=== PATIENT | female | born 1955 | race Caucasian/White ===

== ENCOUNTER 2021-10-27 22:52 | Emergency (ER) | payer BC ==
[~2021-10-27] VITALS: Ht 165.1 cm; Wt 90.9 kg
[2021-10-27 22:53] VITALS: BP 175/92
[2021-10-28] MEDS ORDERED: NORCO, ANEXSIA 5/325MG TABLET (HYDROcodone/ACETAMINOPHEN) PO ONE (01:15)
[2021-10-28] MEDS ORDERED: HYDR-3713 PO (01:48)
[2021-10-28] MEDS ORDERED: NORCO 5/325MG TABLET (HOME DOSE PACK) PO ONE (01:55)
== END 2021-10-28 01:58 | disposition home or self-care (01) ==
LOC: M ED 22:52
DX: S62.320A Displaced fracture of shaft of second metacarpal bone, right hand, initial encounter for closed fracture (principal); W01.0XXA Fall on same level from slipping, tripping and stumbling without subsequent striking against object, initial encounter; Y92.018 Other place in single-family (private) house as the place of occurrence of the external cause; Z88.0 Allergy status to penicillin